=== PATIENT | female | born 1960 | race Caucasian/White ===

== ENCOUNTER 2017-02-26 15:43 | Outpatient (RCR) | payer OTHER, SELFPAY ==
--- NOTE | 2017-02-26 17:29 | HP.PTEVAL ---
Patient's Visit Information GINA PRAJAPATI is a 56 year old F referred to Physical Therapy by MD YASMIN Perla with a diagnosis of BPPV. Date of Evaluation: 02/26/17 Physical Therapist: Haley Mahmood - Visit Plan Frequency: 2x /Week Duration: 2 Weeks Plan: Called Dr bk with negative results of Hallpike and ROll test and they want pt to be re-tested again tomm. Advised the pt to go to ER if any other abnormal symptoms arise. Pt will go home and take her anti-dizzy meds and increase her fluids and is scheduled for [facility] for a re-check of BPPV here. - Subjective Subjective: Pt reports that she did the inversion table last night and felt pressure in her head and had severe dizziness after she came back up and it never went away. She can hardly move due to dizziness. She has gotten worse since last night. Been throwing up since the morning. She has a BOSWELL. No fever. The room spins each time she moves her head. She feels nautious and then she throws up. Sitting here right now she feels she can throw up even after phengran. Not one side is worse than the other. When pt looks to the L she feels more dizzy. Pt has back issues/slipped disc. She had breast CA in the past. She got a prescription for dizziness but has not taken it yet. SHe has take a shot of Phenegran. No neck issues. Pt feels like she is being taken to the R side with gait. She reports she has been throwing up multiple times today - Objective Gait: pt came into dept holding a trash can holding onto her husbands arm for balance. -Hallpike to the R for any increase in dizziness or nystagmus. -Hallpike to the L for any increase in dizziness or nstagmus. -Roll test for any nystagmus or increase in dizziness. Subjectively pt felt no worse with any of the above tests along with no objective nystagmus - Goals Goal 1:: Abolish dizziness Goal Time Frame: 2 Weeks Goal 2:: Check VOR if needed Goal Time Frame: 2 Weeks - Rehabilitation Potential Rehabilitation Potential: Good - Anticipated Interventions Patient/Client Instruction: Educate patient on: Condition, Plan of Care For the Purpose of:: To improve ability to perform ADL's, To increase tolerance to activity/condition/position, To improve performance and independence with ADL's, To improve ability of physical actions for home/community/work/leisure, To improve gait and locomotor functions, To improve balance, To improve safety with gait Manual Therapy Techniques to Include: Other Comment: EPLY if needed For the Purpose of:: To improve ability to perform ADL's, To increase tolerance to activity/condition/position, To improve performance and independence with ADL's Thank you for the opportunity to evaluate your patient. For Medicare and Medicare HMO plans, please review the plan of care and approve it. It will need to be FAXED BACK to us at [phone] for Medicare purposes. Please let me know if there are questions or concerns regarding this plan of care. Physician Signature: Date:
--- NOTE | 2017-07-19 09:38 | HP.PTDCNRP_ITS ---
HP - Discharge Summary (1) - Patient Information GINA PRAJAPATI was seen in my office for initial evaluation on 02/26/17. The following Plan of Care was established for this patient: Initial Frequency: 2x /Week Initial Duration: 2 Weeks - Anticipated Interventions Patient/Client Instruction: Educate patient on: Condition, Plan of Care For the Purpose of:: To improve ability to perform ADL's, To increase tolerance to activity/condition/position, To improve performance and independence with ADL 's, To improve ability of physical actions for home/community/work/leisure, To improve gait and locomotor functions, To improve balance, To improve safety with gait Manual Therapy Techniques to Include: Other Comment: EPLY if needed For the Purpose of:: To improve ability to perform ADL's, To increase tolerance to activity/condition/position, To improve performance and independence with ADL 's This patient was last seen in our office . Pertinent comments regarding their Physical therapy will appear below: At this point I will be discontinuing this patient from physical therapy. I would be happy to see this patient again in the future if found appropriate by the physician. Thank you! Haley Mahmood
== END 2017-02-26 19:00 | disposition home or self-care (01) ==
LOC: PT 15:43
PROVIDERS: Family Provider Family Medicine; PCP Family Medicine; Visit Provider Family Medicine
DX: H81.10 Benign paroxysmal vertigo, unspecified ear (principal)
CPT/HCPCS: 97161

== ENCOUNTER → 2018-08-20 | Outpatient (CLI) | payer OTHER, SELFPAY ==
--- NOTE | 2018-08-20 07:21 | NM_ITS ---
CLINICAL: 58-year-old female with history of carcinoma of the breast. WHOLE BODY 99m Tc MDP RADIONUCLIDE BONE SCINTIGRAPHY COMPARISON: None available FINDINGS: Following the intravenous administration of 25.8 mCi of 99m Tc MDP, whole body bone images reveal: 1. Increased radiopharmaceutical concentration is noted in the upper cervical spine posteriorly on the right, lower cervical spine posteriorly on the left, ninth thoracic vertebra posteriorly on the left, the acromioclavicular and sternoclavicular compartments of both shoulders, medial glenohumeral compartment of the right shoulder, elbows bilaterally, the right wrist, both knee articulations. 2. The remaining skeletal structures are scintigraphically unremarkable with normal-appearing renal images and urinary bladder activity identified. Facilitated uptake is defined in the greater trochanteric aspects of the bilateral proximal femurs most consistent with periostitis or trochanteric bursitis. NM/Bone Scan Whole Body IMPRESSION: 1. The increased radiopharmaceutical concentration identified in the cervical and thoracic spine, bilateral shoulders, right and left elbows, right wrist and knees bilaterally is most consistent with degenerative arthritis. 2. There is no definitive typical scintigraphic evidence of skeletal metastatic disease on the current examination. Electronically Signed: Rafiq Schmitt DO at 8:30 EDT Tel , Service support ,
== END | disposition home or self-care (01) ==
LOC: NM 07:19
PROVIDERS: Referring Provider Orthopaedic Surgery; Visit Provider Orthopaedic Surgery
DX: M51.26 Other intervertebral disc displacement, lumbar region (principal)
CPT/HCPCS: 78306

== ENCOUNTER 2020-08-09 06:28 | Day surgery (SDC) | payer OTHER, SELFPAY ==
[2020-08-09] MEDS: Lactated Ringers 1,000 ML 100 ML IV (06:45)
--- NOTE | 2020-08-09 06:56 | HP.PCM_ITS ---
HPI - General HPI Narrative GINA PRAJAPATI, is a 60 F who presents today for a screening colonoscopy. Her previous one was over 10 years ago. She has a sister who had colon cancer a couple years ago. The patient denies bright red blood per rectum or melena. She intermittently will have constipation and requires fiber supplementation. No acute change of weight. August 2019 she was hospitalized for 9 days with COVID-19. She did have chronic renal insufficiency and respiratory difficulties post hospitalization. She feels that she is made a complete recovery. She was able to tolerate the bowel prep. She is not on any anticoagulants. [facility] Medical History (Updated 08/09/20 @ 06:[address] Lionel Mock MD) Alcohol use Arthritis Cancer Frequent headaches History of COVID-19 Kidney cysts Non-smoker Osteopenia Postmenopausal Thyroid disease Triple negative malignant neoplasm of breast Wears glasses Home Medications calcium-vitamin D3-vitamin K 1 ea PO DAILY 02/08/15 [History Last Taken Unknown] multivitamin with folic acid [Thera] 1 tab PO DAILY 02/08/15 [History Last Taken Unknown] sumatriptan succinate [Imitrex] 100 mg PO PRN PRN 02/08/15 [History Last Taken Unknown] aspirin 81 mg PO DAILY@0800 05/17/16 [History Last Taken Unknown] levothyroxine 25 mcg PO DAILY 05/17/16 [History Last Taken Unknown] td-ba-AP-vit C-hxjzj-mepw-zeax [Ocuvite Eye + Multi Tablet] 1 ea PO DAILY 05/17/16 [History Last Taken Unknown] amitriptyline 5 mg PO QHS 08/05/20 [History Last Taken Unknown] erenumab-aooe [Aimovig Autoinjector] 70 mg SUBCUT QMONTH 08/05/20 [History Last Taken 08/05/20] magnesium 200 mg PO DAILY 08/05/20 [History Last Taken Unknown] psyllium [Metamucil] 1 packet PO QHS 08/05/20 [History Last Taken Unknown] Allergy/AdvReac Type Severity Reaction Status Date / Time erythromycin base AdvReac Severe Abd cramps Verified 08/09/20 06:40 Sulfa (Sulfonamide AdvReac Intermediate Hives Verified 08/09/20 06:40 Antibiotics) Family History (Updated 10/07/17 @ 13:32 by Arabella Cedillo) Mother Arthritis CVA (cerebral vascular accident) Father Heart disease Hypertension Surgical History (Updated 08/05/20 @ 09:51 by Stacy Gary) History of breast mammoplasty History of colonoscopy History of lymph node dissection of axilla History of modified radical mastectomy History of nasal septoplasty History of tonsillectomy S/P TRAM (transverse rectus abdominis muscle) flap breast reconstruction Social History Smoking Status: Never smoker ROS Constitutional Constitutional: Reports systems reviewed and no addt'l complaints, except as documented Cardiovascular Cardiovascular: Denies chest pain Respiratory/Chest Respiratory/Chest: Denies shortness of breath at rest Gastrointestinal Gastrointestinal: Denies abdominal pain, change in bowel habits, hematochezia or melena Physical Exam Const alert, oriented x3 and no apparent distress General Appearance: cooperative and comfortable Eyes General Eye: normal appearance of both eyes Neck General: normal visual inspection Chest inspection of chest normal Resp Effort and Inspection: able to speak in complete sentences and symmetric chest movement Auscultation: clear to auscultation bilaterally Cardio regular rate and regular rhythm GI soft to palpation, non-tender and non-distended Extremity no calf tenderness Neuro oriented x3 Psych thought process normal Assessment & Plan Assessment/Plan (1) Screening for intestinal cancer: PLAN: 60-year-old female. She presents for screening colonoscopy via our open access program. Although she had COVID-19 1 year ago which she claims that she does not feel she has any residual symptoms. She has a sister who within the past 2 years developed colon cancer. We plan to proceed with a colonoscopy with possible biopsy or polypectomy as noted. She is aware of the technique, benefit, risk, alternatives. We will proceed as noted. Lionel Mock M.D., F.A.C.S.
[2020-08-09 07:06] VITALS: BP 143/96; PULSE 71; RESP 12; TEMP 37.1; BMI 25.5
--- NOTE | 2020-08-09 07:49 | OP.CCLET_ITS ---
08/09/2020 Laurita Shipley Re : Colonoscopy procedure for Mine Mcintosh Dear Violetta This procedure was performed on Sunday, August 09, 2020. My impressions and recommendations are as follows: Impressions : - Hemorrhoids found on perianal exam. - Tortuous colon. - The examination was otherwise normal. - No specimens collected. Recommendations : - Discharge patient to home. - Resume previous diet. - Continue present medications. - Repeat colonoscopy in 5 years for surveillance. My findings are described in the full procedure note, which is enclosed. If I can be of further assistance, please feel free to contact me at Doctor phone number(s): Work: . Sincerely, Lionel Mock MD 08/09/2020 7:48:49 AM This report has been signed electronically.
--- NOTE | 2020-08-09 07:49 | OP.COLON_ITS ---
Patient Name: Mine Mcintosh Procedure Date: 08/09/2020 6:52 AM Date of : 1960 Age: 60 Procedure: Colonoscopy Indications: Family history of colon cancer in a first-degree relative Providers: Lionel Mock MD Medicines: See the Anesthesia note for documentation of the administered medications Patient Profile: Last Colonoscopy: more than 10 years ago. Complications: No immediate complications. Procedure: Pre-Anesthesia Assessment: - Prior to the procedure, a History and Physical was performed, and patient medications and allergies were reviewed. The patient's tolerance of previous anesthesia was also reviewed. The risks and benefits of the procedure and the sedation options and risks were discussed with the patient. All questions were answered, and informed consent was obtained. Prior Anticoagulants: The patient has taken no previous anticoagulant or antiplatelet agents. ASA Grade Assessment: II - A patient with mild systemic disease. After reviewing the risks and benefits, the patient was deemed in satisfactory condition to undergo the procedure. After I obtained informed consent, the scope was passed under direct vision. Throughout the procedure, the patient's blood pressure, pulse, and oxygen saturations were monitored continuously. The colonoscope was introduced through the anus and advanced to the cecum, identified by appendiceal orifice and ileocecal valve. The colonoscopy was unusually difficult due to a tortuous colon. The patient tolerated the procedure well. The quality of the bowel preparation was good. The ileocecal valve and the appendiceal orifice were photographed. Scope In: 7:19:08 AM Scope Withdrawal Time 0 hours 13 minutes 0 seconds Scope Out: 7:44:49 AM Total Procedure Duration Time 0 hours 25 minutes 41 seconds Findings: Hemorrhoids were found on perianal exam. The colon (entire examined portion) was significantly tortuous. Advancing the scope required changing the patient to a supine position and using manual pressure. The exam was otherwise without abnormality. Impression: - Hemorrhoids found on perianal exam. - Tortuous colon. - The examination was otherwise normal. - No specimens collected. Recommendation: - Discharge patient to home. - Resume previous diet. - Continue present medications. - Repeat colonoscopy in 5 years for surveillance. Procedure Code(s): --- Professional --- 77950, Colonoscopy, flexible; diagnostic, including collection of specimen(s) by brushing or washing, when performed (separate procedure) Diagnosis Code(s): --- Professional --- K64.9, Unspecified hemorrhoids Z80.0, Family history of malignant neoplasm of digestive organs Q43.8, Other specified congenital malformations of intestine CPT copyright 2017 [employer]. All rights reserved. The codes documented in this report are preliminary and upon diabetes clinical manager review may be revised to meet current compliance requirements. Lionel Mock MD 08/09/2020 7:48:49 AM This report has been signed electronically. Number of Addenda: 0 Note Initiated On: 08/09/2020 6:52 AM
[2020-08-09 07:50] VITALS: BP 117/65; BP 143/96; PULSE 77; RESP 16; TEMP 36.8; O2SAT 100
[2020-08-09 07:55] VITALS: BP 105/66; BP 143/96; PULSE 78; RESP 16; O2SAT 100
[2020-08-09 08:00] VITALS: BP 110/73; BP 143/96; PULSE 76; RESP 16; O2SAT 100
[2020-08-09 08:06] VITALS: BP 114/67; BP 143/96; PULSE 81; RESP 16; TEMP 36.4; O2SAT 100
[2020-08-09 08:24] VITALS: BP 143/96
== END 2020-08-09 08:35 ==
LOC: EN 06:38 → AC 06:40
PROVIDERS: Visit Provider Surgery
PROC: 0DJD8ZZ Inspection of Lower Intestinal Tract, Via Natural or Artificial Opening Endoscopic (ICD-10-PCS; CPT 45378; principal; 2020-08-09 07:25)
DX: Q43.8 Other specified congenital malformations of intestine (principal); K64.4 Residual hemorrhoidal skin tags; E07.9 Disorder of thyroid, unspecified; Z80.0 Family history of malignant neoplasm of digestive organs; Z79.82 Long term (current) use of aspirin; Z79.899 Other long term (current) drug therapy; Z86.16 Personal history of COVID-19; Z68.25 Body mass index [BMI] 25.0-25.9, adult
CPT/HCPCS: 45378; J7120; J2405